=== PATIENT | female | born 1955 | race Caucasian/White ===

== ENCOUNTER → 2016-09-18 | Outpatient (CLI) | payer OTHER ==
[2016-07-08 15:22] VITALS: BP 172/83
[~2016-09-18] MED LIST: CICL12.5 NS; HYDR-971 PO; LEVO112T4 PO; METH-37 PO; NAPR500T3 PO; SPIR25TA3 PO; TIZA4TAB PO
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
== END | disposition home or self-care (01) ==
LOC: PNCL 10:12
PROVIDERS: ATTEND Anesthesiology
DX: M51.16 Intervertebral disc disorders with radiculopathy, lumbar region (principal); M48.06 Spinal stenosis, lumbar region; M54.2 Cervicalgia; M53.82 Other specified dorsopathies, cervical region
CPT/HCPCS: 99212

== ENCOUNTER → 2016-10-09 | Outpatient (CLI) | payer OTHER ==
[2016-07-08 15:22] VITALS: BP 172/83
--- NOTE | 2016-10-09 13:23 | RAD ---
Lateral lumbar spine, 3 views, 10/09/2016: History: Spondylolisthesis Standing lateral views of the lumbar spine were obtained in flexion and extension. A supine lateral view was also obtained as requested. Following findings are delineated on this limited exam: 1. There are moderate degenerative changes involving the facet joints in the lower lumbar spine. There is mild disc space narrowing at multiple levels with mild marginal spurring. The vertebral heights are well-maintained. 2. There is a grade 1 spondylolisthesis at L4-5. There is 9 to 10 mm of anterior subluxation of L4 relative to L5 in the supine position and when standing with extension. The standing flexion view demonstrates approximately 11 mm of anterior subluxation.
== END | disposition home or self-care (01) ==
LOC: RAD 12:08
PROVIDERS: ATTEND Neurological Surgery
DX: M43.16 Spondylolisthesis, lumbar region (principal); M47.896 Other spondylosis, lumbar region
CPT/HCPCS: 72100

== ENCOUNTER → 2016-11-05 | Outpatient (CLI) | payer OTHER ==
[2016-07-08 15:22] VITALS: BP 172/83
--- NOTE | 2016-11-02 20:40 | HP ---
ADMIT DATE: 11/08/2016 HISTORY OF PRESENT ILLNESS: The patient is a pleasant 61-year-old who is having difficulty with low back pain and pain which radiates into both of her legs and inguinal regions. The left side is much more involved than the right. On the left side, she notes pain in the buttock, hip, posterior lateral thigh and leg ending at the ankle. She says the dorsum of her foot and toes are completely numb on the left. The right side, she notes hip pain and some numbness in the right anterior thigh. These problems started in 07/08/2016. She rates her pain as a 6/10. Sitting makes the problem worse. She says if she lies on her side in a position, she can sleep to get some rest. She says that the pain is severe, virtually all the time. Standing and walking markedly increased her pain. She had 3 epidural steroid injections that gave her minimal relief. PAST MEDICAL HISTORY: Asthma, headaches/migraines, head/neck injury, scarlet fever, thyroid disease. PAST SURGICAL HISTORY: Appendectomy in 1958, rotator cuff repair in 1995, total hysterectomy in 2000, a lap cholecystectomy in 2010. FAMILY HISTORY: Diabetes, heart problem/disease, hypertension. SOCIAL HISTORY: Employed. . Denies substance abuse. Denies tobacco use. Drinks alcohol one to two times per year. ALLERGIES: ROCEPHIN AND GLUTEN. CURRENT MEDICATIONS: Levothyroxine, spironolactone, naproxen, [place], tizanidine, Nasonex, Ventolin, omeprazole. REVIEW OF SYSTEMS: A 12-point review of systems was obtained and is noncontributory except that mentioned above. PHYSICAL EXAMINATION: NEUROSURGERY EXAMINATION: GENERAL APPEARANCE: Alert, pleasant, in no acute distress. HEAD: Normocephalic and atraumatic. SKIN: Warm and dry. MUSCULOSKELETAL: Lumbar paraspinal muscle bulk is normal, restricted range of motion of lumbar spine, [id number] tenderness of lower lumbar spine with palpation, normal range of motion of the lower extremities bilaterally. EXTREMITIES: No clubbing, cyanosis, or edema. NEUROLOGIC: Alert and oriented x 3, normal recent and remote memory, strength 5/5 in bilateral lower extremities, sensory was intact to light touch in bilateral lower extremities, reflexes were trace and symmetric in the lower extremities bilaterally, positive straight leg raising on the left, normal gait. IMAGING: I reviewed a lumbar MRI scan. On that study, there is moderately severe left greater than right lateral recess narrowing at L4-L5. This is due to an anterolisthesis grade 1 along with moderate buckling of the ligamentum flavum, combined with hypertrophic degenerative facets. I also obtained lumbar flexion and extension x-rays where I felt there was motion on flexion and extension. At this point, I believe the problems at L4-L5 are responsible for her pain and I have recommended that I operate by doing a lumbar microdecompression at L4-L5 as well as an instrumented fusion at L4-L5. I spoke about the technique of the operation in detail as well as the expected postoperative course. I outlined the risks of surgery. She understands. She would like to proceed. We will make the arrangements. EDMUND OSORIO MD DR: NIDHI/marvin JOB#: [id number] / [id number] FRANCISCA
[~2016-11-05] MED LIST changes: +ALPR0.254 PO; +DOCU-27 PO; +LEVO137T3 PO; +OXYC1TAB7 PO; +VENTOLIN HFA18 GM INH
[2016-11-05 15:31] LABS: BASO # 0.1 x10^3/uL (0.0-0.2); BASO % 1 % (0-3); EOS % 2 % (0-3); HEMATOCRIT 41.9 % (36.0-47.0); HEMOGLOBIN 14.2 g/dL (12.0-15.5); LYMPH # 1.6 x10^3/uL (1.0-4.8); LYMPH % 20 % (24-48); MEAN CORPUSCULAR HEMOGLOBIN 32 pg (25-35); MEAN CORPUSCULAR HGB CONC 34 g/dL (31-37); MEAN CORPUSCULAR VOLUME 93 fL (79-100); MONO % 8 % (0-9); NEUT % 69 % (31-73); PLATELET COUNT 338 x10^3/uL (140-400); RED BLOOD COUNT 4.51 x10^6/uL (3.50-5.40); RED CELL DISTRIBUTION WIDTH 12.2 % (11.5-14.5); WHITE BLOOD COUNT 8.1 x10^3/uL (4.0-11.0)
[2016-11-05 15:41] LABS: INR 1.1 (0.8-1.1); PROTHROMBIN TIME PATIENT 13.2 SEC (11.7-14.0)
[2016-11-05 16:14] LABS: ALBUMIN 3.6 g/dL (3.4-5.0); ALBUMIN/GLOBULIN RATIO 0.9 (1.0-1.7); CREATININE 0.9 mg/dL (0.6-1.0); GFR 63.2; TOTAL BILIRUBIN 0.5 mg/dL (0.2-1.0); TOTAL PROTEIN 7.4 g/dL (6.4-8.2)
== END | disposition home or self-care (01) ==
LOC: SURGPAT 13:56
PROVIDERS: ATTEND Neurological Surgery
DX: Z01.818 Encounter for other preprocedural examination (principal); M54.5 Low back pain; M48.06 Spinal stenosis, lumbar region; M43.16 Spondylolisthesis, lumbar region; M43.26 Fusion of spine, lumbar region
CPT/HCPCS: 36415; 80053; 85027; 85610; 85730; 87641

== ENCOUNTER 2016-11-08 07:33 | Inpatient (IN) | payer OTHER ==
[~2016-11-08] VITALS: Ht 167.6 cm; Wt 88.5 kg
--- NOTE | 2016-11-08 06:46 | HP ---
ADMIT DATE: 11/08/2016 HISTORY OF PRESENT ILLNESS: The patient is a pleasant 61-year-old who is having difficulty with low back pain and pain which radiates into both of her legs and inguinal regions. The left side is much more involved than the right. On the left side, she notes pain in the buttock, hip, posterior lateral thigh and leg ending at the ankle. She says the dorsum of her foot and toes are completely numb on the left. The right side, she notes hip pain and some numbness in the right anterior thigh. These problems started in 07/08/2016. She rates her pain as a 6/10. Sitting makes the problem worse. She says if she lies on her side in a position, she can sleep to get some rest. She says that the pain is severe, virtually all the time. Standing and walking markedly increased her pain. She had 3 epidural steroid injections that gave her minimal relief. PAST MEDICAL HISTORY: Asthma, headaches/migraines, head/neck injury, scarlet fever, thyroid disease. PAST SURGICAL HISTORY: Appendectomy in 1958, rotator cuff repair in 1995, total hysterectomy in 2000, a lap cholecystectomy in 2010. FAMILY HISTORY: Diabetes, heart problem/disease, hypertension. SOCIAL HISTORY: Employed as a ____. . Denies substance abuse. Denies tobacco use. Drinks alcohol one to two times per year. ALLERGIES: ROCEPHIN AND GLUTEN. CURRENT MEDICATIONS: Levothyroxine, ____, spironolactone, naproxen, [place], tizanidine, Nasonex, Ventolin, omeprazole. REVIEW OF SYSTEMS: A 12-point review of systems was obtained and is noncontributory except that mentioned above. PHYSICAL EXAMINATION: NEUROSURGERY EXAMINATION: GENERAL APPEARANCE: Alert, pleasant, in no acute distress. HEAD: Normocephalic and atraumatic. SKIN: Warm and dry. MUSCULOSKELETAL: Lumbar paraspinal muscle bulk is normal, restricted range of motion of lumbar spine, [id number] tenderness of lower lumbar spine with palpation, normal range of motion of the lower extremities bilaterally. EXTREMITIES: No clubbing, cyanosis, or edema. NEUROLOGIC: Alert and oriented x 3, normal recent and remote memory, strength 5/5 in bilateral lower extremities, sensory was intact to light touch in bilateral lower extremities, reflexes were trace and symmetric in the lower extremities bilaterally, positive straight leg raising on the left, normal gait. IMAGING: Reviewed. I reviewed a lumbar MRI scan. On that study, there is moderately severe left greater than right lateral recess narrowing at L4-L5. This is due to an anterolisthesis grade 1 along with moderate buckling of the ligamentum flavum, combined with hypertrophic degenerative facets. I also obtained lumbar flexion and extension x-rays where I felt there was motion on flexion and extension. At this point, I believe the problems at L4-L5 are responsible for her pain and I have recommended that I operate by doing a lumbar microdecompression at L4-L5 as well as an instrumented fusion at L4-L5. I spoke about the technique of the operation in detail as well as the expected postoperative course. I outlined the risks of surgery. She understands. She would like to proceed. We will make the arrangements. EDMUND OSORIO MD DR: NIDHI/marvin JOB#: [id number] / [id number]
[~2016-11-08 07:33] MED LIST changes: +BACITRACIN 50,000 UNIT in IV NORMAL SALINE 1000ML BAG 1,000 ML IRR ONE; +BUPIVAC MPF-EPI 0.5%-1:200000 30 ML VIAL. ONE; -DOCU-27 PO; +GELATIN SPONGE SIZE 100. ONE; +HYDROMORPHONE 2 MG/ML VIAL. IV PRN; +IV RINGERS,LACTATED 1000ML 1,000 ML IV SCH; +KETOROLAC 60 MG/2 ML SYRINGE FOR OR. ONE; +LIDOCAINE 1% 1 ML SYRINGE. ID PRN; +ONDANSETRON PF 4 MG/2 ML VIAL. IV PRN; -OXYC1TAB7 PO; +PROCHLORPERAZINE 10 MG/2 ML VIAL. IV PRN; +THROMBIN 20,000 UNIT SPRAY.SYRN KIT TP ONE; +VANCOMYCIN 1GM IVPB FOR OMNI 250 ML IV PRN
[2016-11-08] MEDS ORDERED: VANCOMYCIN 1GM IVPB FOR OMNI. ONE (08:00)
[2016-11-08] MEDS ORDERED: SCOPOLAMINE 1.5MG PATCH. TD ONE ×2 (08:40→08:45)
[2016-11-08] MEDS ORDERED: FENTANYL PF 100 MCG/2 ML VIAL. IV PRN ×3 (09:30→21:30)
[2016-11-08] MEDS ORDERED: MIDAZOLAM HCL 2 MG/2 ML VIAL. IV PRN (09:30)
[2016-11-08] MEDS ORDERED: LIDOCAINE 1% 1 ML SYRINGE. ID PRN (09:30)
[2016-11-08] MEDS: FENTANYL PF 100 MCG/2 ML VIAL. IV PRN ×8 (09:34→22:41)
[2016-11-08] MEDS ORDERED: ONDANSETRON PF 4 MG/2 ML VIAL. ONE (09:58)
[2016-11-08] MEDS ORDERED: ROCURONIUM 50 MG/5 ML VIAL. ONE (09:58)
[2016-11-08] MEDS ORDERED: REMIFENTANIL 2 MG VIAL. IV ONE ×2 (09:58→18:12)
[2016-11-08] MEDS ORDERED: MIDAZOLAM HCL 2 MG/2 ML VIAL. ONE (09:58)
[2016-11-08] MEDS ORDERED: PROPOFOL 20 ML IV ONE (09:58)
[2016-11-08] MEDS ORDERED: PHENYLEPHRINE 10 MG/ML VIAL. ONE (09:58)
[2016-11-08] MEDS ORDERED: DEXAMETHASONE SOD PHOS 20 MG/5 ML VIAL. ONE ×2 (09:58→14:10)
[2016-11-08] MEDS ORDERED: LIDOCAINE 2% 100 MG/5 ML DISP.SYRIN. ONE (09:58)
[2016-11-08] MEDS ORDERED: PROPOFOL 50 ML IV ONE (09:58)
[2016-11-08] MEDS ORDERED: MINERAL OIL/PETROLATUM,WHITE OPHTH OINT 3.5GM TUBE. ONE (09:59)
--- NOTE | 2016-11-08 10:25 | RAD ---
CT of the lumbar spine without contrast, 11/08/2016: History: Spondylolisthesis, back pain, brain lab study Noncontrast scans were obtained with multiplanar reconstructions produced. The data was transferred to the operating room to aid in the patient's stereotactically guided surgery. The following findings are delineated: 1. There are moderate hypertrophic degenerative changes involving the facet joints at L4-5 with moderate posterior ligamentous thickening. There is a grade 1 spondylolisthesis at this level. There is moderate broad-based posterior disc bulging. The combination of findings is causing mild to moderate central spinal stenosis and bilateral foraminal encroachment at this level. 2. No significant abnormality is present at the L1-2 level. 3. At L2-3 there is moderate broad-based posterior disc bulging. There are mild degenerative changes involving the facet joints. The thecal sac measures 10 mm in AP diameter at the midline. The neural foramina are well maintained. 4. At L3-4 there is mild posterior disc bulging. There are mild degenerative changes involving the facet joints. No significant foraminal or central spinal stenosis is evident. 5. At L5-S1 there are mild degenerative changes involving the facet joints. There is mild posterior disc bulging. The central spinal canal is well-preserved. There is mild left foraminal narrowing due to marginal spurring. 5. Moderate sigmoid diverticulosis is incidentally noted. PQRS Compliance Statement: One or more of the following individualized dose reduction techniques were utilized for this examination: 1. Automated exposure control 2. Adjustment of the mA and/or kV according to patient size 3. Use of iterative reconstruction technique
[2016-11-08] MEDS ORDERED: SCOPOLAMINE 1.5MG PATCH. TD SCH (10:45)
[2016-11-08] MEDS ORDERED: FAMOTIDINE 20 MG/2 ML VIAL ONE (14:15)
[2016-11-08] MEDS ORDERED: PROPOFOL 100 ML IV ONE (14:17)
[2016-11-08] MEDS ORDERED: GLYCOPYRROLATE 1 MG/5 ML VIAL. ONE (15:26)
[2016-11-08] MEDS: IV RINGERS,LACTATED 1000ML 1,000 ML IV SCH ×2 (17:27→20:39)
[2016-11-08] MEDS: POTASSIUM CL 20MEQ D5-0.45NACL 1,000 ML IV SCH (19:10)
[2016-11-08] MEDS ORDERED: ONDANSETRON PF 4 MG/2 ML VIAL. IV PRN (19:15)
[2016-11-08] MEDS ORDERED: ZOLPIDEM 5 MG TABLET. PO PRN (19:15)
[2016-11-08] MEDS ORDERED: OXYCODONE/APAP 5/325 TABLET. PO PRN (19:15)
[2016-11-08] MEDS ORDERED: MAG HYDROX/ALUMINUM HYDROX/SMC 30 ML ORAL.SUSP PO PRN (19:15)
[2016-11-08] MEDS ORDERED: MAGNESIUM HYDROXIDE 2,400 MG/30 ML ORAL.SUSP. PO PRN (19:15)
[2016-11-08] MEDS ORDERED: CALCIUM CARBONATE 500 MG TAB.CHEW PO PRN (19:15)
[2016-11-08] MEDS ORDERED: ACETAMINOPHEN 325 MG TABLET. PO PRN (19:15)
[2016-11-08] MEDS ORDERED: DIPHENHYDRAMINE 50 MG/ML VIAL IV PRN (19:15)
[2016-11-08] MEDS ORDERED: DIPHENHYDRAMINE HCL 25 MG CAPSULE PO PRN (19:15)
[2016-11-08] MEDS ORDERED: 0.9 % SODIUM CHLORIDE 10 ML DISP.SYRIN. IV PRN (19:15)
[2016-11-08] MEDS ORDERED: ALPRAZOLAM 0.25 MG TABLET PO PRN (19:15)
[2016-11-08] MEDS ORDERED: NON FORMULARY ITEM (Albuterol Sulfate (Ventolin Hfa Inhaler) 2 PUFF) INH SCH (20:00)
[2016-11-08] MEDS: MORPHINE SULFATE 2 MG/ML DISP.SYRIN. IV PRN ×2 (20:20→20:33)
[2016-11-08] MEDS: DOCUSATE SODIUM 100 MG CAPSULE PO SCH (21:00)
[2016-11-08 21:10] VITALS: BP 102/57
[2016-11-08 21:25] VITALS: BP 93/45
[2016-11-08 21:40] VITALS: BP 83/37
[2016-11-08] MEDS: ALBUTEROL SULFATE 2.5 MG/3 ML NEBU. NEB SCH (22:00)
[2016-11-08 22:30] VITALS: BP 87/47
[2016-11-08 23:01] VITALS: BP 104/50
[2016-11-09 00:01] VITALS: BP 104/54
[2016-11-09] MEDS: FENTANYL PF 100 MCG/2 ML VIAL. IV PRN ×3 (00:13→04:16)
[2016-11-09] MEDS: tiZANidine 4 MG TABLET. PO PRN ×2 (01:57→10:25)
[2016-11-09 03:30] VITALS: BP 84/49
[2016-11-09] MEDS: OXYCODONE/APAP 5/325 TABLET. PO PRN ×2 (03:45→07:56)
[2016-11-09] MEDS ORDERED: VANCOMYCIN 1 GM in IV NORMAL SALINE 250ML 250 ML IV ONE (06:00)
[2016-11-09 06:34] VITALS: BP 110/58
[2016-11-09] MEDS ORDERED: LEVOTHYROXINE 137 MCG TABLET PO SCH (07:30)
[2016-11-09] MEDS: DOCUSATE SODIUM 100 MG CAPSULE PO SCH (07:56)
[2016-11-09] MEDS: ALBUTEROL SULFATE 2.5 MG/3 ML NEBU. NEB SCH ×2 (08:09→11:51)
[2016-11-09] MEDS: POTASSIUM CL 20MEQ D5-0.45NACL 1,000 ML IV SCH (08:30)
[2016-11-09] MEDS ORDERED: SPIRONOLACTONE 25 MG TABLET PO SCH (09:00)
--- NOTE | 2016-11-09 09:27 | DISCH ---
DISCHARGE INSTRUCTIONS Condition on Discharge Condition on Discharge: Stable Activity After Discharge Activity Instructions for Disc: Resume previous activity, Activity as tolerated Bathing Instructions: Shower-keep dressing dry Lifting Instructions after Dis: No heavy lifting, No pulling or pushing, Do not lift >10 pounds Driving Instructions after Dis: No driving for 2 weeks Diet after Discharge Additional Diet Restrictions: resume home diet Wound Incision Care Wound/Incision Care: Ice to area for comfort Other wound/incision instructi: may remove dressing in 48 hrs if dry then deion shower- no soaking Contacting the DRJaylen after DC Call your doctor for: Concerns you may have Follow-Up Follow up with: Dr. Quiroz in 2 weeks [phone] APRN Nov 09, 2016 09:27
[2016-11-09] MEDS ORDERED: OXYC1TAB7 PO (09:32)
[2016-11-09] MEDS ORDERED: DOCU-27 PO (09:32)
--- NOTE | 2016-11-09 09:43 | PDOC ---
PROGRESS NOTES Subjective Subjective POD #1 sitting on side of bed back/ incision sore, controlled with medication still some numbness in left leg leg pain improved Objective Objective Vital Signs Date Time Temp Pulse Resp B/P Pulse Ox O2 Delivery O2 Flow Rate FiO2 11/09/16 08:11 98 Room Air 11/09/16 06:34 97.5 54 20 110/58 97.5 11/09/16 05:00 2.0 Intake and Output 11/09/16 07:00 Intake Total 3950 ml Output Total 1175 ml Balance 2775 ml Intake Oral 1700 ml IV Total 2250 ml Output Urine Total 1050 ml Estimated Blood Loss 125 ml Physical Exam General: Alert, Oriented X3, Cooperative, No acute distress MUSCULOSKELETAL: Other (DIOP) Neuro: Normal speech Skin: Other (dressing C,D,I,, Flat) Assessment Assessment Problems Medical Problems: (1) Lumbar stenosis Status: Acute Plan Plan of Care may dc home f/u 2 weeks Comment Review of Relevant I have reviewed the following items gary (where applicable) has been applied. Medications Current Medications Ondansetron HCl (Zofran) 4 mg PRN Q6HRS PRN IV Nausea; Start 11/08/16 at 07:00; Stop 11/09/16 at 06:59; Status DC Morphine Sulfate 1 mg 1 mg PRN Q10MIN PRN IV SEVERE PAIN Last administered on 20:33; Start 11/08/16 at 07:00; Stop 11/09/16 at 06:59; Status DC Lactated Ringer's (Iv Lactated Ringers) 1,000 ml @ 0 mls/hr Q0M IV Last administered on 11/08/16 08:13; Start 11/08/16 at 07:00; Stop 11/08/16 at 18:59; Status DC Lidocaine HCl 2 ml 1X PRN PRN ID IV START; Start 11/08/16 at 07:00; Stop at 06:59; Status DC Hydromorphone HCl (Dilaudid) 0.5 mg PRN Q10MIN PRN IV SEVERE PAIN, Second choice; Start 11/08/16 at 07:00; Stop 11/09/16 at 06:59; Status DC Prochlorperazine Edisylate 5 mg 5 mg PACU PRN PRN IV NAUSEA Last administered on 11/08/16 20:05; Start 11/08/16 at 07:00; Stop 11/09/16 at 06:59; Status DC Bacitracin 41720 unit/Sodium Chloride 1,000 ml @ 1,000 mls/hr 1X PERIOP ONCE IRR Last administered on 11/08/16 16:06; Start 11/08/16 at 06:00; Stop 11/08/16 at 06:59; Status DC Vancomycin HCl 250 ml @ 250 mls/hr 1X PREOP PRN IV PRIOR TO PROCEDURE; Start 11/08/16 at 06:00; Stop 11/08/16 at 18:00; Status DC Bupivacaine HCl/ Epinephrine Bitart (Sensorcain-Mpf Epi 0.5%-1:[id number]) 30 ml STK -MED ONCE .ROUTE Last administered on 11/08/16 16:06; Start 11/08/16 at 07:27; Stop 11/08/16 at 07:28; Status DC Gelatin (Gelfoam Size 100) 1 each STK-MED ONCE .ROUTE Last administered on 11/08 16:06; Start 11/08/16 at 07:28; Stop 11/08/16 at 07:29; Status DC Ketorolac Tromethamine (Toradol For Or Only) 60 mg STK-MED ONCE .ROUTE Last administered on 11/08/16 16:06; Start 11/08/16 at 07:28; Stop 11/08/16 at 07:29; Status DC Thrombin 20,000 unit STK-MED ONCE TP Last administered on 11/08/16 16:06; Start 11/08/16 at 07:28; Stop 11/08/16 at 07:29; Status DC Scopolamine (Transderm-Scop) 1 patch STK-MED ONCE TD ; Start 11/08/16 at 08:40; Stop 11/08/16 at 08:41; Status DC Scopolamine (Transderm-Scop) 1 patch ONCE ONCE TD Last administered on 08:46; Start 11/08/16 at 08:45; Stop 11/08/16 at 08:49; Status DC Fentanyl Citrate (Fentanyl 2ml Vial) 50 mcg PRN Q30MIN PRN IV MODERATE PAIN Last administered on 11/09/16 04:16; Start 11/08/16 at 09:30 Midazolam HCl (Versed) 2 mg PRN 1X PRN IV PRIOR TO PROCEDURE; Start 11/08/16 at 09:30; Stop 11/09/16 at 09:29; Status DC Fentanyl Citrate (Fentanyl 2ml Vial) 25 mcg PRN Q5MIN PRN IV X 2 DOSES FOR PAIN Last administered on 11/08/16 09:39; Start 11/08/16 at 09:30; Stop 11/09/16 at 09:29; Status DC Fentanyl Citrate 50 mcg 50 mcg PRN Q5MIN PRN IV X 2 DOSES FOR PAIN; Start at 09:30; Stop 11/09/16 at 09:29; Status DC Lactated Ringer's (Iv Lactated Ringers) 1,000 ml @ 125 mls/hr Q8H IV Last administered on 11/08/16 20:39; Start 11/08/16 at 09:27; Stop 11/08/16 at 21:26; Status DC Lidocaine HCl 2 ml 1X PRN PRN ID IV START; Start 11/08/16 at 09:30; Stop at 09:29; Status DC Dexamethasone Sodium Phosphate (Decadron) 20 mg STK-MED ONCE .ROUTE ; Start 11/08 at 09:58; Stop 11/08/16 at 09:59; Status DC Ondansetron HCl 4 mg 4 mg STK-MED ONCE .ROUTE ; Start 11/08/16 at 09:58; Stop 11/08/16 at 09:59; Status DC Propofol 50 ml @ As Directed STK-MED ONCE IV ; Start 11/08/16 at 09:58; Stop 11/08 at 09:59; Status DC Propofol (Diprivan) 20 ml @ As Directed STK-MED ONCE IV ; Start 11/08/16 at 09:58 ; Stop 11/08/16 at 09:59; Status DC Lidocaine HCl 100 mg STK-MED ONCE .ROUTE ; Start 11/08/16 at 09:58; Stop 11/08/16 at 09:59; Status DC Phenylephrine HCl (Christian-Synephrine Inj) 10 mg STK-MED ONCE .ROUTE ; Start at 09:58; Stop 11/08/16 at 09:59; Status DC Midazolam HCl (Versed) 2 mg STK-MED ONCE .ROUTE ; Start 11/08/16 at 09:58; Stop 11/08/16 at 09:59; Status DC Remifentanil HCl (Ultiva) 2 mg STK-MED ONCE IV ; Start 11/08/16 at 09:58; Stop at 09:59; Status DC Rocuronium Marion (Zemuron) 50 mg STK-MED ONCE .ROUTE ; Start 11/08/16 at 09:58 ; Stop 11/08/16 at 09:59; Status DC Multi-Ingred Cream/Lotion/Oil/ Oint (Artificial Tears Eye Oint) 7 sean STK-MED ONCE .ROUTE ; Start 11/08/16 at 09:59; Stop 11/08/16 at 10:00; Status DC Scopolamine (Transderm-Scop) 1 patch STAT TD ; Start 11/08/16 at 10:45 Dexamethasone Sodium Phosphate (Decadron) 20 mg STK-MED ONCE .ROUTE ; Start 11/08 at 14:10; Stop 11/08/16 at 14:11; Status DC Famotidine 20 mg 20 mg STK-MED ONCE .ROUTE ; Start 11/08/16 at 14:15; Stop at 14:16; Status DC Propofol (Diprivan) 100 ml @ As Directed STK-MED ONCE IV ; Start 11/08/16 at 14: 17; Stop 11/08/16 at 14:18; Status DC Glycopyrrolate (Robinul) 1 mg STK-MED ONCE .ROUTE ; Start 11/08/16 at 15:26; Stop 11/08/16 at 15:27; Status DC Remifentanil HCl (Ultiva) 2 mg STK-MED ONCE IV ; Start 11/08/16 at 18:12; Stop at 18:13; Status DC Alprazolam (Xanax) 0.25 mg PRN Q6HRS PRN PO ANXIETY / AGITATION; Start 11/08/16 at 19:15 Levothyroxine Sodium (Synthroid) 137 mcg DAILYAC PO Last administered on t 06:36; Start 11/09/16 at 07:30 Spironolactone (Aldactone) 25 mg DAILY PO ; Start 11/09/16 at 09:00 Tizanidine HCl (Zanaflex) 4 mg PRN TID PRN PO MUSCLE SPASMS Last administered on 11/09/16 01:57; Start 11/08/16 at 19:15 Non-Formulary Medication 2 puff Q4HRS INH FOR ASTHMA; Start 11/08/16 at 20:00; Status UNV Albuterol Sulfate 2.5 mg 2.5 mg Q4HRS W/A NEB Last administered on 11/09/16 08 :09; Start 11/08/16 at 22:00 Vancomycin HCl/ Sodium Chloride (Iv Sodium Chloride 0.9% 250ml) 250 ml @ 250 mls/hr 1X ONCE IV Last administered on 11/09/16 06:04; Start 11/09/16 at 06:00 ; Stop 11/09/16 at 06:59; Status DC Acetaminophen (Tylenol) 650 mg PRN Q6HRS PRN PO MILD PAIN / TEMP; Start at 19:15 Al Hydrox/Mg Hydrox/Simethicone (Mylanta Plus Xs) 30 ml PRN Q3HRS PRN PO HEARTBURN / GAS; Start 11/08/16 at 19:15 Calcium Carbonate/ Glycine (Tums) 500 mg PRN Q3HRS PRN PO INDIGESTION; Start at 19:15 Diphenhydramine HCl (Benadryl) 25 mg PRN Q6HRS PRN PO ITCHING; Start 11/08/16 at 19:15 Diphenhydramine HCl (Benadryl) 25 mg PRN Q6HRS PRN IV ITCHING; Start 11/08/16 at 19:15 Zolpidem Tartrate (Ambien) 5 mg PRN QHS PRN PO INSOMNIA, MAY REPEAT IN 1HR; Start 11/08/16 at 19:15 Sodium Chloride 3 ml 3 ml QSHIFT PRN IV AFTER MEDS AND BLOOD DRAWS; Start at 19:15 Potassium Chloride/Dextrose/ Sod Cl (KCl 20 Meq In D5W-1/2 NS) 1,000 ml @ 75 mls/hr [id number] IV ; Start 11/08/16 at 19:10 Oxycodone/ Acetaminophen (Percocet 5/325) 1 tab PRN Q4HRS PRN PO MILD PAIN, 1ST CHOICE; Start 11/08/16 at 19:15 Oxycodone/ Acetaminophen (Percocet 5/325) 2 tab PRN Q4HRS PRN PO MODERATE PAIN , SEVERE PAIN Last administered on 11/09/16 07:56; Start 11/08/16 at 19:15 Docusate Sodium (Colace) 100 mg BID PO Last administered on 11/09/16 07:56; Start 11/08/16 at 21:00 Magnesium Hydroxide (Milk Of Magnesia) 2,400 mg PRN Q12HR PRN PO CONSTIPATION; Start 11/08/16 at 19:15 Ondansetron HCl (Zofran) 4 mg PRN Q6HRS PRN IV NAUESA, 1ST CHOICE; Start at 19:15 Fentanyl Citrate (Fentanyl 2ml Vial) 25 mcg PRN Q1HR PRN IV MODERATE PAIN Last administered on 11/09/16 07:57; Start 11/08/16 at 21:30 Fentanyl Citrate (Fentanyl 2ml Vial) 50 mcg PRN Q1HR PRN IV SEVERE PAIN; Start 11/08/16 at 21:30 Vancomycin HCl 1 gm STK-MED ONCE .ROUTE ; Start 11/08/16 at 08:00; Stop 11/09/16 at 08:24; Status DC Active Scripts Active Larsen 5-325 Tablet (Acetaminophen/Hydrocodone Bitart) 1 Each Tablet 1 Tab PO PRN Q6HRS PRN Reported Alprazolam 0.25 Mg Tablet 0.25 Mg PO PRN Q6HRS PRN Levothyroxine Sodium 137 Mcg Tablet 137 Mcg PO DAILYAC Ventolin Hfa Inhaler (Albuterol Sulfate) 18 Gm Hfa.aer.ad 2 Puff INH Q4HRS Naproxen 500 Mg Tablet 1 Tab PO BID Tizanidine Hcl 4 Mg Tablet 1 Tab PO TID PRN Spironolactone 25 Mg Tablet 25 Mg PO DAILY Vitals/I & O Vital Sign - Last 24 Hours 11/08/16 11/08/16 11/08/16 11/08/16 19:53 19:53 20:05 20:08 Pulse 104 82 Resp 20 20 20 B/P 140/81 110/52 Pulse Ox 98 100 O2 Delivery Simple Mask Mask Aerosol Mask Simple Mask O2 Flow Rate 10 10 10.0 10 11/08/16 11/08/16 11/08/16 11/08/16 20:16 20:20 20:23 20:33 Pulse 78 Resp 20 20 20 20 B/P 112/54 Pulse Ox 99 99 97 99 O2 Delivery Simple Mask Simple Mask Room Air Room Air O2 Flow Rate 10.0 10.0 11/08/16 11/08/16 11/08/16 11/08/16 20:38 20:39 20:45 20:53 Pulse 68 50 Resp 20 22 20 20 B/P 117/52 Pulse Ox 96 97 99 96 O2 Delivery Room Air Room Air Room Air O2 Flow Rate 2 11/08/16 11/08/16 11/08/16 11/08/16 20:56 21:00 21:10 21:25 Temp 98.0 97.5 98.0 97.5 Pulse 78 58 50 Resp 20 18 18 B/P 99/50 102/57 93/45 Pulse Ox 99 95 95 O2 Delivery Nasal Cannula Nasal Cannula Nasal Cannula Nasal Cannula O2 Flow Rate 2 2 2.0 2.0 11/08/16 11/08/16 11/08/16 11/08/16 21:30 21:31 21:40 22:30 Pulse 47 52 Resp 18 18 18 B/P 83/37 87/47 Pulse Ox 95 96 97 O2 Delivery Nasal Cannula Nasal Cannula Nasal Cannula Nasal Cannula O2 Flow Rate 2.0 2.0 2.0 2.0 11/08/16 11/08/16 11/09/16 11/09/16 22:41 23:01 00:01 00:13 Pulse 50 52 Resp 18 18 20 20 B/P 104/50 104/54 Pulse Ox 96 95 O2 Delivery Nasal Cannula Nasal Cannula Nasal Cannula Room Air O2 Flow Rate 2.0 2.0 2.0 11/09/16 11/09/16 11/09/16 11/09/16 00:45 01:51 03:30 03:45 Pulse 50 Resp 18 18 20 20 B/P 84/49 Pulse Ox 96 95 O2 Delivery Room Air Room Air Nasal Cannula 11/09/16 11/09/16 11/09/16 11/09/16 04:16 05:00 05:00 06:34 Temp 97.5 97.5 Pulse 54 Resp 20 B/P 110/58 Pulse Ox 95 95 95 96 O2 Delivery Nasal Cannula Nasal Cannula Nasal Cannula Room Air O2 Flow Rate 2.0 2.0 2.0 11/09/16 11/09/16 11/09/16 11/09/16 07:33 07:56 07:57 08:11 Pulse Ox 98 O2 Delivery Room Air Room Air Room Air Room Air Intake and Output 11/08/16 11/08/16 11/09/16 15:00 23:00 07:00 Intake Total 2250 ml 1700 ml Output Total 925 ml 250 ml Balance 1325 ml [address] APRN Nov 09, 2016 09:43
[2016-11-09 11:00] VITALS: BP 105/51
--- NOTE | 2016-11-09 22:49 | OP ---
DATE OF SURGERY: PREOPERATIVE DIAGNOSES: 1. Grade 1/2 anterolisthesis at L4-L5. 2. Severe left greater than right lateral recess narrowing at L4-L5. POSTOPERATIVE DIAGNOSES: 1. Grade 1/2 anterolisthesis at L4-L5. 2. Severe left greater than right lateral recess narrowing at L4-L5. OPERATION PERFORMED: 1. Lumbar hemilaminotomy and transfacet exposure, left L4-L5. 2. Posterior instrumentation at L4-L5, posterolateral fusion at L4-L5 with allograft and autograft bone. 3. Anterior lumbar diskectomy at L4-L5, anterior interbody fusion at L4-L5 with interbody fusion cage using allograft and autograft bone. OPERATIVE INDICATIONS: The patient is a very pleasant 61-year-old woman who is having difficulty with low back pain and pain which radiates into both of her legs. The left side is much more involved than the right side. On imaging studies, she had a spondylolisthesis with motion along with fairly severe left lateral recess stenosis and the presence of right lateral recess narrowing. There was motion on flexion and extension films and I recommended decompression primarily on the left, decompression of dura and nerve root combined with an instrumented lumbar fusion. She understood the surgery and the risks, she understood the technique of the operation, and she wished for me to go ahead. DESCRIPTION OF PROCEDURE: Following general endotracheal anesthesia, the patient was positioned prone on the Kingsley table. Her lumbar region was prepped and draped in a standard fashion. ISH hose and AV impulse boots were applied for DVT prophylaxis. The microscope was draped. Fluoroscopy was draped and brought in the field. Monitoring was established. Vancomycin 1 g was given. The [facility] system was initialized by placing a post into the right iliac crest. The [employer] system was then initialized and tested and then I made an incision on the right from superior L4 to inferior L5, dissected down through the skin and subcutaneous tissue and I reflected the paraspinal muscles to the right and placed a Kimberly micro disk retractor, brought in the microscope, and drilled into the posterior aspect of the pedicles of L4 and L5. I passed the black ball followed by the ball tip probe, followed by tap, followed by screw tape placement. At this time, I also aspirated 20 mL of bone marrow from the left iliac crest, which I cannulated by using the [employer] system followed by a Jamshidi needle through which I aspirated. I did excoriate the transverse processes and lateral facet. I packed allograft bone into this location and then using [employer] system, I placed 6.5 screws and placed the ancelmo and nuts, but did not torque. I created an exposure, placed the retractor, again brought in the microscope and in the same fashion cannulated the pedicles of L4 and L5. I did not yet place pedicle screws. I excoriated laterally and at this point then brought in the microscope and then using the high-speed air drill, I burred down a generous hemilaminotomy and then I worked laterally and performed a transfacet exposure and I fully decompressed the entire region. There was a significant spondylolisthesis present. I then placed the pedicle screw at this point, then I placed the pedicle screws in L4 and L5 and placed the ancelmo. I then placed the screw caps and nuts, but did not torque the assembly. At this point then, I performed the anterior operation. I tilted the patient away from me and made an incision in the posterior left flank and then using a lateral oblique approach passed the [employer] with the sleeve down to dock at the very superior portion of L5 just at the region where the lateral edge of the pedicle attaches the body. Moving slightly superior to that, then I was able to enter into the disk space. I confirmed that the nerves were not in direct continuity and again this was done from the left side and I replaced the dilator, which was tapped into the disk space followed by the working channel. Through the working channel then, I performed a very generous diskectomy. There was considerable degenerative material within the disk space. I scraped the cartilaginous endplate and fully decompressed the disk. Then at this point, I removed the working channel after replacing the dilator and slid the shield to protect the nerve root down into dock into the disk space. I then used trials and determined that a 10 x 9-cage would be most appropriate and I then packed this with allograft and some autograft bone into the disk space. I packed the cage, which was then placed into the disk space and positioned. At this point then, I released the cage, irrigated copiously, removed the slide, tilted the patient back, and continued with the posterior approach. Then through the posterior exposure, irrigated copiously. I placed allograft and autograft bone into the lateral gutter on the left. The autograft bone, I obtained from the generous hemilaminotomy and autograft exposure. This was mixed with allograft and placed in the left lateral gutter and it was also placed into the cage and into the interbody location for the anterior portion. The system was gently compressed on the left side following the cage insertion and then these were torqued sequentially both left and right side. I irrigated copiously with antibiotic solution. Fluoroscopic images looked quite good. I irrigated copiously. I closed the wound in layers with absorbable sutures. Skin was closed with a 4-0 subcuticular stitch. The operation went very well and the patient was awakened uneventfully, taken to recovery room in excellent condition. I was quite pleased with the surgery. EDMUND OSORIO MD DR: NIDHI/marvin JOB#: [id number] / [id number]
== END 2016-11-09 12:00 | disposition home or self-care (01) | DRG 455 ==
LOC: OPSVCIP 07:33 → 4 SOUTHEST 21:11
PROVIDERS: ADMIT Neurological Surgery; ATTEND Neurological Surgery
PROC: 0SG00A0 Fusion of Lumbar Vertebral Joint with Interbody Fusion Device, Anterior Approach, Anterior Column, Open Approach (ICD-10-PCS; principal; 2016-11-09)
PROC: 0SG0071 Fusion of Lumbar Vertebral Joint with Autologous Tissue Substitute, Posterior Approach, Posterior Column, Open Approach (ICD-10-PCS; 2016-11-09)
PROC: 0SB20ZZ Excision of Lumbar Vertebral Disc, Open Approach (ICD-10-PCS; 2016-11-09)
DX: M43.16 Spondylolisthesis, lumbar region (principal); M48.06 Spinal stenosis, lumbar region; J45.909 Unspecified asthma, uncomplicated; E07.9 Disorder of thyroid, unspecified; G43.909 Migraine, unspecified, not intractable, without status migrainosus; Z88.0 Allergy status to penicillin; Z88.8 Allergy status to other drugs, medicaments and biological substances; Z91.040 Latex allergy status; Z90.49 Acquired absence of other specified parts of digestive tract; Z90.710 Acquired absence of both cervix and uterus; Z83.3 Family history of diabetes mellitus; Z82.49 Family history of ischemic heart disease and other diseases of the circulatory system
CPT/HCPCS: 36415; 72131; 76000; 86850; 86900; 86901; 94250; 94640; 94760; C1713; J0780; J1100; J1885; J2250; J2270; J2405; J2704; J3010; J3370; J3490; J7030; J7050; J7120; S0028; 97530

== ENCOUNTER → 2017-01-28 | Outpatient (CLI) | payer OTHER ==
[~2017-01-28] MED LIST changes: -BACITRACIN 50,000 UNIT in IV NORMAL SALINE 1000ML BAG 1,000 ML IRR ONE; -BUPIVAC MPF-EPI 0.5%-1:200000 30 ML VIAL. ONE; +DOCU-27 PO; -GELATIN SPONGE SIZE 100. ONE; -HYDROMORPHONE 2 MG/ML VIAL. IV PRN; -IV RINGERS,LACTATED 1000ML 1,000 ML IV SCH; -KETOROLAC 60 MG/2 ML SYRINGE FOR OR. ONE; -LIDOCAINE 1% 1 ML SYRINGE. ID PRN; -ONDANSETRON PF 4 MG/2 ML VIAL. IV PRN; +OXYC1TAB7 PO; -PROCHLORPERAZINE 10 MG/2 ML VIAL. IV PRN; -THROMBIN 20,000 UNIT SPRAY.SYRN KIT TP ONE; -VANCOMYCIN 1GM IVPB FOR OMNI 250 ML IV PRN
--- NOTE | 2017-01-28 12:40 | RAD ---
Indication pain. AP and lateral views of the lumbar spine were obtained. Note is made of a CT examination 11/08/2016. Spinal fixation cage and interbody fusion are noted at L4-5. Spondylolisthesis at L4-5 is similar to a study October 09, 2016. No acute or unexpected finding is seen. IMPRESSION: Postop changes. No acute or unexpected finding seen
== END | disposition home or self-care (01) ==
LOC: RAD 12:04
PROVIDERS: ATTEND Neurological Surgery
DX: M43.26 Fusion of spine, lumbar region (principal)
CPT/HCPCS: 72100